=== PATIENT | female | born 1950 | race Caucasian/White ===

== ENCOUNTER 2018-07-14 15:53 | Emergency (ER) | payer MEDICARE ==
[~2018-07-14] VITALS: Ht 162.6 cm; Wt 39.5 kg
[~2018-07-14 15:53] MED LIST: ALPRAZOLAM0.5 M2 PO; AMITRIPTYLINE25 MG PO; ASPIRIN 32325 MG/TAB PO; ATIVAN0.5 MG PO; DAZIDOX20 MG PO; ENABLEX15 MG PO; FEROSUL325 MG PO; IRON325 MG PO; LIQUID MAGNESI400 MG PO; LYRICA 50MG CAP50 MG PO; LYRICA75 MG PO; MULTIPLE VITAMI1 CAP PO; NITRO-DUR0.1 MG/PAT TD; OXYCODONE30 MG PO; OXYCONTIN 20MG20 MG PO; OXYCONTIN30 MG PO; PREDNISONE 5MG5 MG PO; SERTRALINE50 MG PO; VITAMIN B122000 MCG PO; ZOLOFT50 MG PO
[2018-07-14 15:55] VITALS: TEMP 98.3
[2018-07-14] MEDS ORDERED: LEVOXYL0.05 MG PO (16:25)
[2018-07-14] MEDS ORDERED: CATAPRES 0.1MG0.1 MG PO (16:26)
[2018-07-14] MEDS ORDERED: MOBIC 7.5MG7.5 MG PO (16:27)
[2018-07-14] MEDS ORDERED: AMITRIPTYLINE H25 M1 PO (16:27)
[2018-07-14] MEDS ORDERED: ASPIRIN 81M81 MG/TA2 PO (16:28)
[2018-07-14] MEDS ORDERED: LEXAPRO20 MG PO (16:29)
[2018-07-14] MEDS ORDERED: FOSAMAX5 MG PO ×2 (16:30→16:31)
[2018-07-14 16:55] VITALS: BP 171/95; PULSE 88
== END 2018-07-14 16:55 | disposition home or self-care (01) ==
LOC: COL.ER 15:53
DX: K62.3 Rectal prolapse (principal); Z87.891 Personal history of nicotine dependence

== ENCOUNTER → 2019-05-03 | Outpatient (CLI) | payer MEDICARE ==
[~2019-05-03] MED LIST changes: +AMITRIPTYLINE H25 M1 PO; +ASPIRIN 81M81 MG/TA2 PO; +CATAPRES 0.1MG0.1 MG PO; +FOSAMAX5 MG PO; +LEVOXYL0.05 MG PO; +LEXAPRO20 MG PO; +MOBIC 7.5MG7.5 MG PO
== END ==
LOC: MC.RAD 14:36
DX: Z12.31 Encounter for screening mammogram for malignant neoplasm of breast (principal)

== ENCOUNTER 2019-09-30 09:36 | Day surgery (SDC) | payer MEDICARE ==
[~2019-09-30] VITALS: Ht 154.9 cm; Wt 41.8 kg
[2019-09-30 10:51] VITALS: BP 150/87; PULSE 84; TEMP 98.1
[2019-09-30] MEDS ORDERED: CYMBALTA 60MG60 MG PO (11:04)
[2019-09-30] MEDS ORDERED: DAZIDOX10 MG PO (11:06)
[2019-09-30] MEDS ORDERED: PROTONIX 40MG T40 MG PO (11:08)
[2019-09-30 11:09] LABS: CALCIUM 6.7 mg/dL (8.4-10.2); CREATININE, serum 0.73 (0.52-1.25)
[2019-09-30] MEDS ORDERED: CARAFATE 1GM1 G PO (11:09)
[2019-09-30] MEDS ORDERED: NATURAL E400 IU PO (11:10)
[2019-09-30 11:17] LABS: POTASSIUM 2.5 mmol/L (3.4-5.0)
--- NOTE | 2019-09-30 11:36 | NUR ---
LAB RESULTES GIVEN TO MARISSA FARR.
[2019-09-30 12:38] LABS: CALCIUM 8.8 mg/dL (8.4-10.2); CREATININE, serum 0.93 (0.52-1.25); POTASSIUM 3.4 mmol/L (3.4-5.0)
[2019-09-30 13:10] VITALS: BP 142/87; PULSE 73; TEMP 97.6
--- NOTE | 2019-09-30 13:10 | NUR ---
Patient arrives to [facility] via cart, accompanied by [facility] RN Kymberly. Bedside report received. Patient ambulates with 1:1 assist to chair in room. Monitoring applied - VSS and WNL on room air. She denies any pain or nausea. Offered and receives juice and a muffin to eat. Call light in reach.
[2019-09-30 13:15] VITALS: BP 147/89; PULSE 70
--- NOTE | 2019-09-30 13:17 | NUR ---
Dr. Beckett at the bedside at this time.
[2019-09-30 13:30] VITALS: BP 160/89; PULSE 78
--- NOTE | 2019-09-30 13:30 | NUR ---
PATIENT RESTING COMFORTABLY IN CHAIR. EATING MUFFIN. DENIES NAUSEA. NO PAIN
[2019-09-30 13:45] VITALS: BP 143/80; PULSE 73
--- NOTE | 2019-09-30 14:13 | NUR ---
PATIENT ESCORTED BY ENDO RN VIA WHEELCHAIR TO EXIT. DISCHARGE INSTRUCTIONS REVIEWED AND EXPLAINED. VERBAL UNDERSTANDING RECEIVED, DENIES QUETIONS. INSTRUCTIONS SIGNED BY PATIENT. DISCHARGED TO HOME WITH RIDE BY PRIVATE CAR.
== END 2019-09-30 14:13 | disposition home or self-care (01) ==
LOC: SDCO 09:36
PROVIDERS: Internal Medicine Gastroenterology; Nurse Anesthetist, Certified Registered
DX: K57.30 Diverticulosis of large intestine without perforation or abscess without bleeding (principal); K63.89 Other specified diseases of intestine; D50.9 Iron deficiency anemia, unspecified; K92.1 Melena; K21.9 Gastro-esophageal reflux disease without esophagitis; R19.7 Diarrhea, unspecified; K31.89 Other diseases of stomach and duodenum; Z90.49 Acquired absence of other specified parts of digestive tract; Z79.82 Long term (current) use of aspirin; K59.00 Constipation, unspecified; K29.70 Gastritis, unspecified, without bleeding; I10 Essential (primary) hypertension; K58.9 Irritable bowel syndrome, unspecified; Z90.710 Acquired absence of both cervix and uterus; F17.210 Nicotine dependence, cigarettes, uncomplicated
CPT/HCPCS: J2704; J7030

== ENCOUNTER → 2019-10-13 | Outpatient (CLI) | payer MEDICARE ==
[~2019-10-13] MED LIST changes: +CARAFATE 1GM1 G PO; +CYMBALTA 60MG60 MG PO; +DAZIDOX10 MG PO; +NATURAL E400 IU PO; +PROTONIX 40MG T40 MG PO
== END ==
LOC: COL.RAD 10:00
DX: R10.32 Left lower quadrant pain (principal); Z90.49 Acquired absence of other specified parts of digestive tract

== ENCOUNTER 2020-06-22 19:46 | Emergency (ER) | payer MEDICARE ==
[~2020-06-22] VITALS: Ht 157.5 cm; Wt 40.9 kg
[2020-06-22 19:55] VITALS: TEMP 99.3
[2020-06-22 20:15] LABS: BASO # 0.1 (0.0-0.2); BASO % 1.2 % (0.0-2.0); EOS # 0.1 (0.0-0.7); EOS % 0.6 % (0-4.0); GRAN # 8.4 (1.4-6.5); GRAN % 79.8 % (42.2-75.2); LYMPH # 1.3 (1.2-3.4); LYMPH % 12.6 % (20.0-51.0); MEAN CELL VOLUME 94 fl (80.0-100.0); MEAN CORPUSCULAR HEMOGLOBIN 30 pg (27.0-31.0); MEAN CORPUSCULAR HGB CONC 32 g/dl (33.0-37.0); MONO # 0.6 (0.1-0.6); MONO % 5.5 % (1.7-9.3); PLATELET COUNT 435 K/mm3 (130-400); RED BLOOD COUNT 4.35 M/mm3 (4.10-5.30)
[2020-06-22 20:24] LABS: ALBUMIN 3.6 gm/dL (3.5-5.0); BILIRUBIN,TOTAL 0.5 mg/dL (0.0-1.0); CALCIUM 8.9 mg/dL (8.4-10.2); CREATININE, serum 1.18 (0.52-1.25); POTASSIUM 3.7 mmol/L (3.4-5.0); TOTAL PROTEIN 6.3 gm/dL (6.4-8.2)
[2020-06-22 20:41] LABS: INR 0.8 (0.8-3.0); PROTHROMBIN TIME 9.1 SECONDS (9.7-12.8)
[2020-06-22 20:43] LABS: TROPONIN-I 0.123 ng/mL (0.000-0.035)
[2020-06-22 23:07] VITALS: BP 143/100; PULSE 88
== END 2020-06-22 23:06 | disposition short-term general hospital (02) ==
LOC: COL.ER 19:46
PROVIDERS: Emergency Medicine
DX: I21.4 Non-ST elevation (NSTEMI) myocardial infarction (principal); I10 Essential (primary) hypertension; F17.210 Nicotine dependence, cigarettes, uncomplicated
CPT/HCPCS: J1644

== ENCOUNTER → 2020-10-10 | Outpatient (CLI) | payer MEDICARE | LOC: COL.RAD 12:25 | DX: M27.8 Other specified diseases of jaws (principal) ==

== ENCOUNTER → 2021-08-21 | Outpatient (CLI) | payer MEDICARE, MEDICAID ==
[~2021-08-21] VITALS: Ht 157.5 cm; Wt 43.5 kg
[~2021-08-21] MED LIST changes: +BENTYL 10MG10 MG/CAP PO; +IRON TABLETS325 MG PO; +ISORDIL TITRADO30 MG PO; +LIPITOR 40MG TA40 MG PO; +MOBIC15 MG PO; +NEURONTIN300 MG/CAP PO; +NORVASC 5MG5 MG/TAB PO; +PROLIA60 MG/ML SQ; +ROXICODONE15 MG PO; +TOPROL XL 25MG25 MG PO; +VITAMIN D31000 IU PO
[2021-08-21 13:24] VITALS: BP 101/63; PULSE 60; TEMP 98.2
[2021-08-21 14:25] VITALS: BP 109/55; PULSE 51
== END ==
LOC: COL.RAD 12:59
DX: T85.9XXA Unspecified complication of internal prosthetic device, implant and graft, initial encounter (principal)
CPT/HCPCS: Q9967

== ENCOUNTER → 2021-09-04 | Outpatient (CLI) | payer MEDICARE, MEDICAID | LOC: COL.RAD 13:11 | DX: E04.1 Nontoxic single thyroid nodule (principal) ==

== ENCOUNTER → 2022-06-18 | Outpatient (CLI) | payer MEDICARE, MEDICAID ==
[~2022-06-18] MED LIST changes: +CEPHALEXIN500 M1 PO; +IMDUR 30MG30 MG/TAB PO; +NITROSTAT0.4 MG/TAB SL; +OXYCONTIN15 MG PO
== END ==
LOC: COL.RAD 07:54
DX: M75.121 Complete rotator cuff tear or rupture of right shoulder, not specified as traumatic (principal)

== ENCOUNTER 2022-07-09 05:40 | Day surgery (SDC) | payer MEDICARE, MEDICAID ==
[~2022-07-09] VITALS: Ht 154.9 cm; Wt 38.9 kg
[~2022-07-09 05:40] MED LIST changes: -CEPHALEXIN500 M1 PO; -IMDUR 30MG30 MG/TAB PO; -NITROSTAT0.4 MG/TAB SL; -OXYCONTIN15 MG PO
[2022-07-09 06:44] VITALS: BP 103/66; PULSE 67; TEMP 97
[2022-07-09] MEDS ORDERED: IMDUR 30MG30 MG/TAB PO (07:11)
[2022-07-09] MEDS ORDERED: NITROSTAT0.4 MG/TAB SL (07:14)
[2022-07-09] MEDS ORDERED: OXYCONTIN15 MG PO (07:15)
[2022-07-09] MEDS ORDERED: CEPHALEXIN500 M1 PO (08:10)
[2022-07-09 10:55] VITALS: BP 98/53; PULSE 73; TEMP 98.5
--- NOTE | 2022-07-09 10:55 | NUR ---
The patient arrived back to [facility] from the recovery room at this time. The patient appeaers alert and oriented and denies any pain or nausea at this time. The patient's aquacel dressing to her right shoulder appear dry and intact with a small amount of drainage showing. The patient has a sling in place to her right arm. The patient had a nerve block placed pre operatively and it continues to provided pain control. The patient agrees to try some toast and water. Call light is within reach. The patient denies any further needs.
[2022-07-09 11:10] VITALS: BP 99/51; PULSE 74
--- NOTE | 2022-07-09 11:10 | NUR ---
The patient appears to be tolerating the food and drink well. The patient's vital signs appear stable. Call light is within reach. Denies any further needs.
[2022-07-09 11:25] VITALS: BP 105/56; PULSE 78
--- NOTE | 2022-07-09 11:25 | NUR ---
The patient has finished her food and drink and denies wanting anything further to eat or drink at this itme. The patient voices a desire to get dressed and put her prosthesis back in place so she can ambulate to the bathroom.
--- NOTE | 2022-07-09 11:40 | NUR ---
The patient was assisted to get dresssed and ambulate to the bathroom with the stand by assistance of one nurse and her walker. She voided without difficulty and voices a desire to be discharged home. Her ride was called and will be at the ER entrance at 1200. Discharge instructions were reviewed with the patient at this time. She verbalized understanding and questions were answered at this time. The patient's IV to her left hand was removed and a pressure dressing was applied to the site.
[2022-07-09 11:52] VITALS: BP 103/57; PULSE 75; TEMP 99
--- NOTE | 2022-07-09 11:55 | NUR ---
The patient was escorted out via wheelchair to a private vehicle by ADRIAN Armendariz. The patient's belongings and discharge paperwork were sent with her. The patient's ride is present drive her home.
== END 2022-07-09 11:55 | disposition home or self-care (01) ==
LOC: SDCO 05:40
DX: M75.121 Complete rotator cuff tear or rupture of right shoulder, not specified as traumatic (principal); M19.011 Primary osteoarthritis, right shoulder; I10 Essential (primary) hypertension; Z89.512 Acquired absence of left leg below knee; Z89.511 Acquired absence of right leg below knee; Z79.899 Other long term (current) drug therapy
CPT/HCPCS: A4566; A4619; J0690; J1100; J2250; J2405; J2704; J2795; J3010; J7120